=== PATIENT | female | born 1935 | race Caucasian/White ===

== ENCOUNTER → 2017-06-23 | Day surgery (SDC) | payer MEDICARE, MEDICAID ==
[~2017-06-23] MED LIST: ALEN70 PO; ASPI325T24 PO; B COTAB3 PO; CALC500 PO; EFFE150C PO; FISH500C PO; HYDR12.56 PO; OMEP20CA5 PO; POTA-243 PO; PROPOFOL 200 MG/20 ML AMP IV ONE; SIMV20 PO; SYNT25TA PO
--- NOTE | 2017-06-23 12:57 | GIPROC ---
[facility] [address] [facility], [id number] EGD PROCEDURE REPORT EXAM DATE: 06/23/2017 PATIENT NAME: Rashida Barreto MR #: [id number] BIRTHDATE: 1935 ATTENDING: Manny Flowers MD ORDER #: [id number] BATCH TANK CONTROLLER: Conrad Rodriguez RN STATUS: outpatient INDICATIONS: The patient is a 81 yr old female here for an EGD due to dyspepsia, history of esophageal reflux, and H/O Gastric ulcer PROCEDURE PERFORMED: EGD w/ biopsy MEDICATIONS: None and Per Anesthesia. TOPICAL ANESTHETIC: none CONSENT: The patient understands the risks and benefits of the procedure and understands that these risks include, but are not limited to: sedation, allergic reaction, infection, perforation and/or bleeding. Alternative means of evaluation and treatment include, among others: physical exam, x-rays, and/or surgical intervention. The patient elects to proceed with this endoscopic procedure. medical equipment was checked for proper function. Hand hygiene and appropriate measures for infection prevention was taken. After the risks, benefits and alternatives of the procedure were thoroughly explained, Informed consent was verified, confirmed and timeout was successfully executed by the treatment team. The patient was anesthetized with topical anesthesia and the EG-[id number] ([id number]) endoscope was introduced through the mouth and advanced to the second portion of the duodenum. Retroflexed views revealed no abnormalities The gastroscope was then slowly withdrawn and removed. Gastritis Bx from antrum. Esophagitis bx from distal esophagus. ADVERSE EVENTS: There were no complications. IMPRESSIONS: 1. Gastritis Bx from antrum 2. Esophagitis bx from distal esophagus 3. Retroflexed views revealed no abnormalities RECOMMENDATIONS: 1. Await biopsy results. Biopsy results will not be ready for 7-10 days. If you don't hear from us in two weeks, call our office for biopsy results. 2. Anti-reflux regimen 3. Avoid NSAIDS 4. Continue PPI PATIENT CONDITION: stable DISPOSITION: Home REPEAT EXAM: Return as needed for EGD Manny Flowers MD eSigned: Manny Flowers MD 06/23/2017 12:57 PM cc:
== END | disposition home or self-care (01) ==
LOC: ESDC 11:09
PROVIDERS: ATTEND Hospitalist
DX: R10.13 Epigastric pain (principal); K21.9 Gastro-esophageal reflux disease without esophagitis; Z87.11 Personal history of peptic ulcer disease; K29.70 Gastritis, unspecified, without bleeding; K20.9 Esophagitis, unspecified
CPT/HCPCS: 88305; 88312